=== PATIENT | male | born 1970 | race Caucasian/White ===

== ENCOUNTER 2021-08-07 08:07 | Emergency (ER) | payer BC, OTHER ==
[2021-08-07 08:12] VITALS: TEMP 97.4
--- NOTE | 2021-08-07 09:04 | XR ---
EXAMINATION TYPE: XR forearm LT DATE OF EXAM: 08/07/2021 CLINICAL HISTORY: pain TECHNIQUE: Frontal and lateral images of the left forearm are obtained. COMPARISON: None. FINDINGS: There is no acute fracture/dislocation evident. The joint spaces appear within normal limi ts. The overlying soft tissue appears unremarkable. IMPRESSION: There is no acute fracture or dislocation. ICD 10 NO FRACTURE, INITIAL EVALUATION
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
[2021-08-07 10:21] VITALS: BP 134/100; PULSE 82; RESP 16
== END 2021-08-07 10:21 | disposition home or self-care (01) ==
LOC: EC 08:07
DX: S09.90XA Unspecified injury of head, initial encounter (principal); S50.12XA Contusion of left forearm, initial encounter; F17.200 Nicotine dependence, unspecified, uncomplicated; V43.52XA Car driver injured in collision with other type car in traffic accident, initial encounter; Y92.410 Unspecified street and highway as the place of occurrence of the external cause
CPT/HCPCS: 70450; 72125; 99284